=== PATIENT | male | born 2000 | race Two or more races ===

== ENCOUNTER 2020-06-03 20:27 | Emergency (ER) | payer OTHER ==
[2020-06-03] MEDS ORDERED: KETOROLAC TROMETHAMINE 30 MG/1 ML VIAL IM ONE (21:26)
[2020-06-03] MEDS ORDERED: KETOROLAC TROMETHAMINE 30 MG/1 ML VIAL ONE (21:36)
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
[2020-06-03 21:53] VITALS: BP 119/65; PULSE 69; TEMP 98.7; BMI 28.3
== END 2020-06-03 22:12 | disposition home or self-care (01) ==
LOC: JERFT 20:27 → EDBD 20:27 → JER 20:27 → JERFT 22:12
PROC: 3E0233Z Introduction of Anti-inflammatory into Muscle, Percutaneous Approach (ICD-10-PCS; principal; 2020-06-03)
DX: M79.641 Pain in right hand (principal)
CPT/HCPCS: 73130-TC-RT-FY; 99284-25

== ENCOUNTER 2020-07-12 21:21 | Emergency (ER) | payer OTHER ==
[2020-07-12 21:30] VITALS: BP 136/67; PULSE 58; TEMP 97.8; BMI 28.3
--- NOTE | 2020-07-12 21:31 | PDOC ---
Rapid Medical Evaluation Chief Complaint: Chest Pain Time Seen by Provider: 07/12/20 21:27 Medical Evaluation: Allergies Allergy/AdvReac Type Severity Reaction Status Date / Time No Known Allergies Allergy Verified 06/03/20 21:12 07/12/20 21:27 CC: Intermittent chest tightness x 5 days with dizziness, no other complaints, no med hx, no familial hx Exam: VSS, NO REPROD cp lcta Plan: ekg
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
[2020-07-12 23:18] LABS: BASO % 0.4 % (0-2.0); EOS % 1.3 % (0-4.5); HEMATOCRIT 44.9 % (35.4-49); HEMOGLOBIN 15.6 GM/dL (11.7-16.9); LYMPH % 19.5 % (8-40); MCH 29.8 pg (25.7-33.7); MCHC 34.6 g/dl (32.0-35.9); MEAN PLT VOLUME 9.1 fl (7.5-11.1); MONO % 6.3 % (3.8-10.2); NEUT % 72.5 % (42.8-82.8); PLATELET COUNT 217 K/MM3 (134-434); RBC 5.22 M/mm3 (4.00-5.60); RDW 13.1 % (11.9-15.9); WHITE BLOOD COUNT 9.9 K/mm3 (4.0-10.0)
[2020-07-12 23:53] LABS: ALBUMIN 4.2 g/dl (3.4-5.0); ALK PHOS 122 U/L (45-117); ANION GAP 3 MMOL/L (8-16); BILIRUBIN,TOTAL 0.3 mg/dL (0.2-1); BLOOD UREA NITROGEN 15.2 mg/dL (7-18); CALCIUM 9.1 mg/dL (8.5-10.1); CHLORIDE 106 mmol/L (98-107); CO2 30 mmol/L (21-32); CREATININE 0.8 mg/dL (0.55-1.3); GLUCOSE,RANDOM 103 mg/dL (74-106); POTASSIUM 3.7 mmol/L (3.5-5.1); SGOT/AST 13 U/L (15-37); SGPT/ALT 18 U/L (13-61); SODIUM 139 mmol/L (136-145); TOT PROT 7.6 g/dl (6.4-8.2)
[2020-07-12] MEDS ORDERED: ACETAMINOPHEN 325 MG TABLET (FP) PO ONE (23:58)
[2020-07-13] MEDS ORDERED: ACETAMINOPHEN 325 MG TABLET (FP) ONE (00:15)
--- NOTE | 2020-07-13 00:20 | PDOC ---
History of Present Illness - General Chief Complaint: Chest Pain Stated Complaint: CHEST PAIN Time Seen by Provider: 07/12/20 21:27 History Source: Patient Exam Limitations: No Limitations Past History - Travel History Traveled outside of the country in the last 30 days: No Close contact w/someone who was outside of country & ill: No - Medical History Allergies/Adverse Reactions: Allergies Allergy/AdvReac Type Severity Reaction Status Date / Time No Known Allergies Allergy Verified 06/03/20 21:12 Home Medications: Ambulatory Orders Methocarbamol [Robaxin -] 1,500 mg PO Q8H PRN #24 tablet 06/03/20 COPD: No - Psycho-Social/Smoking History Smoking History: Never smoked - Substance Abuse Hx (Audit-C & DAST Scrn) How often the patient has a drink containing alcohol: Never Score: In Men: 4 or > Positive; In Women: 3 or > Positive: 0 Screen Result (Pos requires Nsg. Audit-10AR): Negative Review of Systems - Review of Systems Able to Perform ROS?: Yes Comments:: 07/13/20 01:23 CONSTITUTIONAL: Absent: fever, chills, diaphoresis, generalized weakness, malaise, loss of appetite HEENT: Absent: rhinorrhea, nasal congestion, throat pain, throat swelling, difficulty swallowing, mouth swelling, ear pain, eye pain, visual Changes CARDIOVASCULAR: Present: chest pain Absent: loss of consciousness, palpitations, irregular heart rate, peripheral edema RESPIRATORY: Absent: cough, shortness of breath, dyspnea with exertion, orthopnea, wheezing, stridor, hemoptysis GASTROINTESTINAL: Absent: abdominal pain, abdominal distension, nausea, vomiting, diarrhea, constipation, melena, hematochezia GENITOURINARY: Absent: dysuria, frequency, urgency, hesitancy, hematuria, flank pain, genital pain MUSCULOSKELETAL: Absent: myalgia, arthralgia, joint swelling SKIN: Absent: rash, itching, pallor HEMATOLOGIC/IMMUNOLOGIC: Absent: easy bleeding, easy bruising, lymphadenopathy, frequent infections ENDOCRINE: Absent: unexplained weight gain, unexplained weight loss, heat intolerance, cold intolerance NEUROLOGIC: Absent: headache, focal weakness or paresthesias, dizziness, unsteady gait, seizure, mental status changes, bladder or bowel incontinence PSYCHIATRIC: Absent: anxiety, depression, suicidal or homicidal ideation, hallucinations. Is the patient limited [place]ian proficient: No *Physical Exam - Vital Signs Last Vital Signs Temp Pulse Resp BP Pulse Ox 97.8 F 58 L 20 136/67 99 07/12/20 21:25 07/12/20 21:25 07/12/20 21:25 07/12/20 21:25 07/12/20 21:25 - Physical Exam 07/13/20 01:24 GENERAL: Well developed, well nourished. Awake and alert. No acute distress. HEENT: Normocephalic, atraumatic. PERRLA, EOMI. No conjunctival pallor. Sclera are non- icteric. Moist mucous membranes. Oropharynx is clear. NECK: Supple. Full ROM. No lymphadenopathy. CARDIOVASCULAR: Regular rate and rhythm. No murmurs, rubs, or gallops. Distal pulses are 2+ and symmetric. PULMONARY: No evidence of respiratory distress. Lungs clear to auscultation bilaterally. No wheezing, rales or rhonchi. ABDOMINAL: Soft. Non-tender. Non-distended. No rebound or guarding. MUSCULOSKELETAL Normal range of motion at all joints. No bony deformities or tenderness. No CVA tenderness. EXTREMITIES: No cyanosis. No clubbing. No edema. No calf tenderness. SKIN: Warm and dry. Normal capillary refill. No rashes. No jaundice. NEUROLOGICAL: Alert, awake, appropriate. Cranial nerves 2-12 intact. No deficits to light touch and temperature in face, upper extremities and lower extremities. No motor deficits in the in face, upper extremities and lower extremities. Normoreflexic in the upper and lower extremities. Normal speech. Toes are down-going bi laterally. Gait is normal without ataxia. PSYCHIATRIC: Cooperative. Good eye contact. Appropriate mood and affect. Heart Score/ECG Review - History History: Slightly suspicious - Electrocardiogram EKG: Normal - Age Age: </= 45 - Risk Factors Based on the list above the patient has:: No risk factors known - Troponin Troponin: </= normal limit - Score Heart Score - Total: 0 ED Treatment Course - LABORATORY CBC & Chemistry Diagram: 07/12/20 22:22 07/12/20 23:00 - ADDITIONAL ORDERS Additional order review: Laboratory Results 07/12/20 23:00 Sodium 139 Potassium 3.7 Chloride 106 Carbon Dioxide 30 Anion Gap 3 L BUN 15.2 Creatinine 0.8 Est GFR (CKD-EPI)AfAm 146.96 Est GFR (CKD-EPI)NonAf 126.80 Random Glucose 103 Calcium 9.1 Magnesium 2.0 Total Bilirubin 0.3 AST 13 L ALT 18 Alkaline Phosphatase 122 H Creatine Kinase 94 Troponin I < 0.02 Total Protein 7.6 Albumin 4.2 TSH 2.53 07/12/20 22:22 RBC 5.22 MCV 86.0 MCHC 34.6 RDW 13.1 MPV 9.1 Neutrophils % 72.5 Lymphocytes % 19.5 Monocytes % 6.3 Eosinophils % 1.3 Basophils % 0.4 - RADIOLOGY Radiology Studies Ordered: Category Date Time Status CHEST PA & LAT [RAD] Stat Radiology 07/12/20 22:23 Completed Medical Decision Making - Medical Decision Making 07/13/20 01:50 The patient is a 20 y/o M with no PMH, presents to the ER with five days of intermittent dizziness and chest pain. He states that the chest pain comes and goes. He states the pain is usually substernal and resolves after a few minutes. He denies palpitations when the tightness happens. He states he has not taken anything for the pain prior to arrival. He states the dizziness also comes on randomly and is not positional. He works in construction. No family hx of heart disease or sudden cardiac . Denies fevers, chills, COVID exposure/infection, SOB, dyspnea, n/v/d. A/P: Chest pain On exam, RRR, S1 S2 present. No murmurs, rubs or gallops known. Lungs CTAB. No wheezing, rales or rhonchi. No palpable chest pain Atypical chest pain. No active chest pain at this time. Symptoms lasting longer than 5 days, low risk chest pain Labs, EKG, CXR ordered Troponin negative EKG: Rate 58 BPM, Sinus bradycardia. Normal intervals. No acute ST-T wave changes. CXR with no acute pathology on my read; no widened mediastiunum. Heart score 0 VSS, afebrile Will refer to PCP and cardiology for further outpatient work up. Strict return precautions given. I discussed the physical exam findings, ancillary test results and final diagnoses with the patient. I answered all of the patient's questions. The patient was satisfied with the care received and felt comfortable with the discharge plan and treatment plan. The Patient agrees to follow up with the primary care physician/specialist within 24-72 hours. Return precautions were given. Discharge - Discharge Information Problems reviewed: Yes Clinical Impression/Diagnosis: Chest pain Qualifiers: Chest pain type: unspecified Qualified Code(s): R07.9 - Chest pain, unspecified Condition: Stable Disposition: HOME - Admission No - Follow up/Referral Referrals: [facility] [place] [Provider Group] Dilip Petty MD [Staff Physician] - - Patient Discharge Instructions Patient Printed Discharge Instructions: DI for Atypical Chest Pain Additional Instructions: You were seen for your chest pain and dizziness today. Your EKG and lab work was all normal today. This may be muscular pain. However it is very important you follow-up with a rolled materials worker. A referral is been provided to you. Please make sure you drink plenty of fluids and eat regular meals. Do not lift more than 10 pounds until your symptoms improveA Please also follow-up with primary care. Referrals been provided to you. Return to the ER for worsening chest pain, difficulty breathing, shortness of breath, lightheadedness or if you have any changes in your symptoms Hoy te vieron por tu dolor de pecho y mareos. Fuchs electrocardiograma y anlisis de laboratorio fueron normales hoy. [place] puede ser un dolor muscular. Sin embargo, es muy importante que realice un seguimiento con un cardilogo. Se le charles proporcionado la referencia. Asegrese de beber muchos lquidos y de comer con regularidad. No levante ms de 10 libras hasta que shay sntomas mejoren. Tambin ambreen un seguimiento con atencin primaria. Se le villavicencio proporcionado referencias. Regrese a la daylin de emergencias si el dolor en el pecho empeora, la dificultad para respirar, la falta de aire, el aturdimiento o si tiene algn cambio en shay sntomas - Post Discharge Activity
--- NOTE | 2020-07-13 09:51 | EKG ---
Test Reason : Blood Pressure : / mmHG Vent. Rate : 051 BPM Atrial Rate : 051 BPM P-R Int : 142 ms QRS Dur : 090 ms QT Int : 394 ms P-R-T Axes : 054 067 019 degrees QTc Int : 363 ms SINUS BRADYCARDIA OTHERWISE NORMAL ECG WHEN COMPARED WITH ECG OF 12-JUL-2020 21:29, SINUS RHYTHM HAS REPLACED ECTOPIC ATRIAL RHYTHM QRS AXIS SHIFTED LEFT NONSPECIFIC T WAVE ABNORMALITY NO LONGER EVIDENT IN ANTERIOR LEADS Confirmed by VIRGEN SAMUEL, CHERYL ([id number]) on 07/13/2020 9:50:41 AM Referred By: Confirmed By:CHERYL NEW MD
--- NOTE | 2020-07-13 09:51 | EKG ---
Test Reason : Blood Pressure : / mmHG Vent. Rate : 060 BPM Atrial Rate : 060 BPM P-R Int : 144 ms QRS Dur : 088 ms QT Int : 368 ms P-R-T Axes : 128 114 015 degrees QTc Int : 368 ms SUSPECT ARM LEAD REVERSAL, INTERPRETATION ASSUMES NO REVERSAL UNUSUAL P AXIS, POSSIBLE ECTOPIC ATRIAL RHYTHM RIGHT AXIS DEVIATION ABNORMAL ECG NO PREVIOUS ECGS AVAILABLE Confirmed by VIRGEN SAMUEL, CHERYL ([id number]) on 07/13/2020 9:50:56 AM Referred By: Confirmed By:CHERYL NEW MD
== END 2020-07-13 01:00 | disposition home or self-care (01) ==
LOC: JER 21:21
DX: R07.9 Chest pain, unspecified (principal)
CPT/HCPCS: 36415; 71046-TC-FY; 80053; 82550; 83735; 84443; 84484; 85025; 93005; 93010; 99284-25

== ENCOUNTER 2021-06-25 23:48 | Emergency (ER) | payer OTHER ==
[2021-06-26 00:52] VITALS: TEMP 99; BMI 28.3
[2021-06-26 02:33] LABS: EOS % 3.8 % (0-4.5); HEMATOCRIT 42.4 % (35.4-49); HEMOGLOBIN 14.9 GM/dL (11.7-16.9); LYMPH % 22.1 % (8-40); MCH 30.7 pg (25.7-33.7); MCHC 35.1 g/dl (32.0-35.9); MEAN CELL VOLUME 87.5 fl (80-96); MEAN PLT VOLUME 7.5 fl (7.5-11.1); MONO % 8.7 % (3.8-10.2); NEUT % 64.4 % (42.8-82.8); PLATELET COUNT 215 10^3/uL (134-434); RBC 4.84 M/mm3 (4.00-5.60); RDW 13.7 % (11.9-15.9); WHITE BLOOD COUNT 7.2 K/mm3 (4.0-10.0)
[2021-06-26 02:52] LABS: CHLORIDE 105 mmol/L (98-107); SODIUM 138 mmol/L (136-145)
[2021-06-26 02:54] LABS: CALCIUM 8.2 mg/dL (8.5-10.1)
[2021-06-26 02:55] LABS: ALBUMIN 3.7 g/dl (3.4-5.0); ANION GAP 7 MMOL/L (8-16); BLOOD UREA NITROGEN 18.6 mg/dL (7-18); CO2 27 mmol/L (21-32); GLUCOSE,RANDOM 96 mg/dL (74-106)
[2021-06-26 02:58] LABS: CREATININE 0.8 mg/dL (0.55-1.3); SGOT/AST 51 U/L (15-37); SGPT/ALT 98 U/L (13-61)
[2021-06-26 02:59] LABS: BILIRUBIN,TOTAL 0.4 mg/dL (0.2-1); TOT PROT 7.3 g/dl (6.4-8.2)
[2021-06-26 03:01] LABS: ALK PHOS 119 U/L (45-117)
[2021-06-26 03:26] LABS: URINE APPEARANCE CLEAR; URINE BILIRUBIN NEGATIVE (NEGATIVE); URINE COLOR YELLOW; URINE GLUCOSE (UA) NEGATIVE (NEGATIVE); URINE KETONE TRACE (NEGATIVE); URINE LEUK ESTERASE NEGATIVE (NEGATIVE); URINE NITRITE NEGATIVE (NEGATIVE); URINE PROTEIN TRACE (NEGATIVE)
[2021-06-26] MEDS ORDERED: DOXYCYCLINE HYCLATE 100 MG CAPSULE PO ONE ×2 (03:39→04:49)
[2021-06-26] MEDS ORDERED: cefTRIAXone SODIUM 1 GM VIAL ONE (04:49)
[2021-06-26 05:31] VITALS: BP 128/72; PULSE 78
== END 2021-06-26 05:34 | disposition home or self-care (01) ==
LOC: JER 23:48
DX: R00.2 Palpitations (principal); R30.0 Dysuria
CPT/HCPCS: 36415; 80053; 81003; 82550; 84443; 84484; 85025; 87086; 87491; 87591; 93005; 93010; 99284-25

== ENCOUNTER 2021-06-26 12:57 | Emergency (ER) | payer OTHER ==
[2021-06-26 13:05] VITALS: BMI 28.3
[2021-06-26 13:57] VITALS: BP 122/85; PULSE 76
== END 2021-06-26 13:56 | disposition home or self-care (01) ==
LOC: JER 12:57
DX: R00.2 Palpitations (principal); F41.9 Anxiety disorder, unspecified
CPT/HCPCS: 93005; 93010; 99283-25

== ENCOUNTER 2022-09-04 23:41 | Emergency (ER) | payer OTHER ==
[2022-09-04 23:47] VITALS: BP 129/79; PULSE 110; RESP 17; TEMP 97.6; BMI 29.2
== END 2022-09-05 06:11 | disposition left against medical advice (07) ==
LOC: JER 23:41
DX: S00.83XA Contusion of other part of head, initial encounter (principal); Y04.0XXA Assault by unarmed brawl or fight, initial encounter
CPT/HCPCS: 70450-TC; 70486-TC; 72125-TC; 99285-25